=== PATIENT | female | born 1980 | race Caucasian/White ===

== ENCOUNTER 2021-01-09 06:20 | Emergency (ER) | payer OTHER ==
[~2021-01-09] VITALS: Ht 167.6 cm; Wt 68.0 kg
[2021-01-09 07:04] VITALS: BP 117/82
== END 2021-01-09 07:05 | disposition home or self-care (01) ==
LOC: ER 06:20
DX: Z03.823 Encounter for observation for suspected inserted (injected) foreign body ruled out (principal); T16.2XXA Foreign body in left ear, initial encounter; X58.XXXA Exposure to other specified factors, initial encounter; Y93.89 Activity, other specified; Y92.89 Other specified places as the place of occurrence of the external cause; Y99.8 Other external cause status